=== PATIENT | female | born 1965 | race Caucasian/White ===

== ENCOUNTER 2021-09-20 19:52 | Emergency (ER) | payer BC ==
[2021-09-20 20:06] VITALS: TEMP 98.5; BMI 18.5
[2021-09-20 22:06] LABS: HCG,QUALITATIVE URINE Negative
[2021-09-20] MEDS ORDERED: LACTATED RINGERS SOLUTION 1000 ML INFUS.BAG IV ONE (22:10)
[2021-09-20 22:43] LABS: BASO % 0.8 % (0-2.0); EOS % 0.5 % (0-4.5); HEMATOCRIT 37.7 % (32.4-45.2); HEMOGLOBIN 12.6 GM/dL (10.7-15.3); LYMPH % 34.5 % (8-40); MCH 29.1 pg (25.7-33.7); MCHC 33.4 g/dl (32.0-36.0); MEAN CELL VOLUME 87.1 fl (80-96); MEAN PLT VOLUME 8.7 fl (7.5-11.1); MONO % 9.3 % (3.8-10.2); NEUT % 54.9 % (42.8-82.8); PLATELET COUNT 207 10^3/uL (134-434); RBC 4.33 M/mm3 (3.60-5.2); RDW 12.7 % (11.6-15.6); WHITE BLOOD COUNT 6.5 K/mm3 (4.0-10.0)
[2021-09-20 22:51] LABS: INR 1.57 (0.83-1.09); PROTHROMBIN TIME (PATIENT) 18.5 SEC (9.7-13.0)
[2021-09-20 22:54] LABS: ACTIVATED PTT 25.1 SECONDS (25.2-36.5)
[2021-09-20 23:01] LABS: URINE APPEARANCE Clear; URINE BILIRUBIN Negative (NEGATIVE); URINE COLOR Yellow; URINE GLUCOSE (UA) Negative (NEGATIVE); URINE KETONE Negative (NEGATIVE); URINE LEUK ESTERASE 1+ (NEGATIVE); URINE NITRITE Negative (NEGATIVE); URINE PROTEIN 1+ (NEGATIVE); URINE UROBILINOGEN 0.2 mg/dL (0.2-1.0)
[2021-09-20 23:03] LABS: CALCIUM 8.9 mg/dL (8.5-10.1)
[2021-09-20 23:04] LABS: ALBUMIN 3.6 g/dl (3.4-5.0); BLOOD UREA NITROGEN 22.7 mg/dL (7-18)
[2021-09-20 23:07] LABS: CREATININE 0.5 mg/dL (0.55-1.3)
[2021-09-20 23:08] LABS: BILIRUBIN,TOTAL 0.4 mg/dL (0.2-1); TOT PROT 6.6 g/dl (6.4-8.2)
[2021-09-20] MEDS ORDERED: CEFTRIAXONE 1,000 MG in DEXTROSE 5%-WATER - 50 ML IVPB ONE (23:47)
[2021-09-20] MEDS ORDERED: POTASSIUM CHLORIDE TABS 20 MEQ TABLET.ER (FP) PO ONE (23:48)
[2021-09-21 00:01] LABS: EPI CELLS 17.7 /uL (0-25.1); URINE RBC 87.9 /uL (0-23.9)
[2021-09-21] MEDS ORDERED: POTASSIUM CHLORIDE TABS 20 MEQ TABLET.ER (FP) PO ONE (00:16)
[2021-09-21] MEDS ORDERED: CEFTRIAXONE 1 GM/50 ML BAG ONE (00:17)
[2021-09-21 00:53] VITALS: BP 108/53; PULSE 60
[2021-09-21 01:25] LABS: URINE CRYSTALS NONE SEEN /hpf
== END 2021-09-21 01:28 | disposition home or self-care (01) ==
LOC: JER 19:52
DX: N13.2 Hydronephrosis with renal and ureteral calculous obstruction (principal); K76.89 Other specified diseases of liver; E87.6 Hypokalemia; R79.1 Abnormal coagulation profile
CPT/HCPCS: 36415; 74176-TC; 80053; 81003; 84703; 85025; 85610; 85730; 86850; 86900; 86901; 87086; 87186; 93005; 93010; 99285-25; C9803; U0003; U0005